=== PATIENT | male | born 1960 | race Caucasian/White ===

== ENCOUNTER 2020-03-25 07:32 | Inpatient (IN) ==
[2020-03-25 08:15] LABS: Hematocrit 50.5 % (42.0-52.0); Hemoglobin 15.3 gm/dL (13.5-18.0); Mean Cell Volume 103.9 fl (78-100); Mean Corpuscular Hemoglobin 31.5 pg (27-31); Mean Corpuscular Hgb Conc 30.3 g/dl (32-36); Mean Platelet Volume 11.8 fl (8-11.3); Neutrophil # 7.4 K/mm3 (1.3-6.0); Neutrophil % 78.8 % (42-75.0); Platelet Count 190 K/mm3 (150-450); Red Blood Count 4.86 M/mm3 (4.7-6.0); Red Cell Distribution Width 14.4 % (11.5-14.0); White Blood Count 9.4 K/mm3 (4.0-10.5)
[2020-03-25] MEDS ORDERED: FUROSEMIDE 10 MG/ML VIAL IV ONE (08:34)
[2020-03-25 08:35] LABS: Troponin I Less than 0.017 ng/mL (0.00-0.10)
[2020-03-25 08:36] LABS: ALT 52 U/L (19-67); AST 30 U/L (0-48); Alkaline Phosphatase * 109 U/L (50-170); Anion Gap 4.5 mmol/L (6.8-13.8); BNP * 978 pg/mL (5-175); BUN/Creatinine Ratio 11.9 (9.0-21.6); Bilirubin, Total 0.5 mg/dL (0.0-1.1); Blood Urea Nitrogen 10 mg/dL (6-23); Ca. Corrected For Albumin 9.6 mg/dL (8.4-10.2); Calcium * 9.1 mg/dL (7.9-10.9); Carbon Dioxide 34.6 mmol/L (24-32.6); Chloride 102 mmol/L (97-106); Glucose * 139 mg/dL (70-110); Potassium 4.1 mmol/L (3.4-4.6); Sodium 137 mmol/L (132-142); Total Protein 6.9 gm/dL (6.2-8.2)
[2020-03-25] MEDS ORDERED: ALBUTEROL SULFATE/IPRATROPIUM 3 ML NEBU IH ONE (09:10)
[2020-03-25] MEDS ORDERED: METHYLPREDNISOLONE SOD SUCC/PF 40 MG/ML VIAL IV ONE (09:11)
--- NOTE | 2020-03-25 12:05 | ERNOTE ---
Dyspnea - Date Date of Service: 03/25/20 - General Presenting Symptoms: shortness of breath Time Seen by Provider: 03/25/20 08:04 Source: patient Exam Limitations: no limitations - Immun/Allergies/Home Medications Immunizations: IMMUNIZATION HX Immunizations Up to Date Yes History of Influenza Vaccine No Hx Pneumococcal Vaccination No Allergies/Adverse Reactions: Allergies Penicillins Allergy (Unknown, Verified 03/25/20 08:03) Home Medications: HOME MEDICATIONS NK 03/25/20 [Last Taken Unknown] - History of Present Illness Narrative: Patient presents to the ED for feeling SOB. This has been a progressive problem. Legs more swollen especially over the last 2 weeks. He does not regularly see a doctor. Has not had anything like this specifically before. Not very forthcoming historically. No CP. Mild cough. SOB worse with exertion. Has not seen anyone else for this. 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 Denies: fever/chills, chest pain/discomfort Prior Treatment: Denies: recently seen Review of Systems - Review of Systems Constitutional: Absent: fever EYE: Present: no symptoms reported ENT: Absent: sore throat Respiratory: Present: See HPI Cardiology: Absent: chest pain Gastrointestinal/Abdominal: Present: other - has a known hernia, no acurte Sx with this Genitourinary: Present: no symptoms reported Neurological: Absent: weakness All Other Systems: All systems neg except as marked Medical History (Last Reviewed 03/25/20 @ 11:57 by Ibrahima Golden MD) COPD (chronic obstructive pulmonary disease) Hernia Hypertension Surgical History: Surgical History (Last Reviewed 03/25/20 @ 11:57 by Ibrahima Golden MD) History of tonsillectomy and adenoidectomy Family History: Family History (Last Reviewed 03/25/20 @ 11:57 by Ibrahima Golden MD) Brother CHF (congestive heart failure) Hypertension Mother Hypertension Brother COPD (chronic obstructive pulmonary disease) Grandmother COPD (chronic obstructive pulmonary disease) Father Medical history unknown Social History: (Last Reviewed 03/25/20 @ 11:57 by Ibrahima Golden MD) Social History: lives independently: Yes household members: family current occupational status: disabled current occupational exposures/hazards: No Tobacco: Smoking Status: Current every day smoker tobacco type: cigarettes Smoking cigarettes per day: 20 Alcohol: alcohol intake: former Substance Use: substance use type: does not use Dietary Habits: well-balanced diet: daily or most days caffeine: Yes Type: carbonated beverages Physical Exam - Physical Exam General Appearance: Present: alert, other - mild tachypnea Head Exam: Present: normal inspection, no evidence of injury Eye Exam: Normal inspection: bilateral, PERRL: bilateral Ears, Nose, Throat: Present: normal ENT inspection Neck: Present: normal inspection Respiratory: Present: other - Mild tachypnea, rales and scattered faint wheezes Cardiovascular/Chest: Present: regular rate, rhythm Gastrointestinal/Abdominal: Present: normal bowel sounds, nontender, other - No tenderness over the hernia Back Exam: Absent: CVA tenderness (R), CVA tenderness (L) Extremity Exam: Present: pedal edema Neurological Exam: Present: alert, no motor/sensory deficits Skin Exam: Present: normal color, warm/dry Progress - Results and Orders Patient's Lab Results:: I have reviewed the patient's lab results. - Vital Signs Patient's Vital Signs:: I have reviewed the patient's vital signs. Vital Signs: Vital Signs 03/25/20 07:35 03/25/20 08:01 03/25/20 08:05 Temperature 36.4 C Pulse Rate 70 70 70 Respiratory Rate 28 H 22 H 24 H Blood Pressure 148/65 H 125/57 O2 Sat by Pulse Oximetry 75 L 88 L 95 03/25/20 08:47 03/25/20 09:01 03/25/20 09:31 Temperature Pulse Rate 70 73 69 Respiratory Rate 15 22 H Blood Pressure 137/63 163/137 H 156/60 H O2 Sat by Pulse Oximetry 86 L 91 L 03/25/20 09:33 03/25/20 10:01 03/25/20 10:31 Temperature Pulse Rate 68 74 91 Respiratory Rate 19 20 24 H Blood Pressure 161/97 H 148/83 H O2 Sat by Pulse Oximetry 93 88 L 92 L - EKG EKG #1 EKG: NSR EKG read: Interp. by me EKG Comments: NSR rate 71. Non-specific, no STEMI - X-Ray X-Ray #1 X-Ray: chest Interpretation: Interp. by me X-ray Comments: I personally reviewed image as well as official radiology report - CT/Ultrasound CT/Ultrasound Narrative: I personally reviewed the official radiology report - Progress/Reassessment Chief Complaint: Dyspnea Progress Note-Subjective: 03/25/20 12:03 Patient given IV Lasix. Had good diuresis. BiPap started. He needs to be admitted, I spoke to the Dr Black who will admit the patient. Patient understands need for hospitalization. Improved after Meds here. Bipap for the hypercarbia, this is likely chronic. Departure Clinical Impression: Hypoxia, CHF (congestive heart failure), Hypercarbia - Departure Disposition: Still a patient Condition: Fair Referrals: NONE,NONE [Primary Care Provider] -
[2020-03-25] MEDS: ENOXAPARIN SODIUM 40 MG/0.4 ML SYRG SC SCH (16:26)
[2020-03-25] MEDS: ALBUTEROL SULFATE/IPRATROPIUM 3 ML NEBU IH PRN (19:05)
[2020-03-25] MEDS: METHYLPREDNISOLONE SOD SUCC/PF 125 MG/2 ML VIAL IV SCH (19:09)
[2020-03-25] MEDS: FUROSEMIDE 10 MG/ML VIAL IV SCH (21:25)
--- NOTE | 2020-03-25 22:18 | HP ---
Chief Complaint - Chief Complaint Date of Service: 03/25/20 Time of Service: 22:17 Chief Complaint: Shortness of breath, fatigue History of Present Illness: 59-year-old male with no known pertinent past medical history came into the ER today with shortness of breath and fatigue that has been ongoing for the last 2 weeks or so. Patient takes no medications and does not see the doctors regularly. Patient not very good historian with his overall health. Patient does admit to having shortness of breath with walking. Patient states that he has been out of sleep last 3 or 4 days due to shortness of breath. Patient endorses mild nonproductive cough. Patient denies fevers or chills. In the ER patient is found have a white count of 9.4 and a D-dimer of 0.93. Patient had CTA which was negative for pulmonary embolus. Patient was negative for Covid. Patient was fairly distressed in the ER and so patient was admitted under BiPAP. Initial ABG showed him to have a PCO2 of 93.5, a PO2 of 76 4, pH of 7.23, and a bicarb of 30.2. Patient also had a BNP of 978. EKG showed nonspecific ST changes but no STEMI. Patient denied chest pain. Patient received a dose IV Lasix and diuresed fairly well. Patient was placed in observation for likely new onset CHF versus COPD exacerbation, and brought over to the floor on BiPAP. When examined patient was coherent and responding to questions appropriately though he was a poor historian did not really talk but is out. Patient did endorse long history of cigarette use. Medical History (Last Reviewed 03/25/20 @ 12:39 by Deisy Harper RN) COPD (chronic obstructive pulmonary disease) Hernia Hypertension Surgical History: Surgical History (Last Reviewed 03/25/20 @ 12:39 by Deisy Harper RN) History of tonsillectomy and adenoidectomy Family History: Family History (Last Reviewed 03/25/20 @ 12:39 by Deisy Harper RN) Brother CHF (congestive heart failure) Hypertension Mother Hypertension Brother COPD (chronic obstructive pulmonary disease) Grandmother COPD (chronic obstructive pulmonary disease) Father Medical history unknown Social History: (Last Reviewed 03/25/20 @ 12:39 by Deisy Harper RN) Social History: lives independently: Yes household members: family current occupational status: disabled current occupational exposures/hazards: No Tobacco: Smoking Status: Current every day smoker tobacco type: cigarettes Smoking cigarettes per day: 20 Alcohol: alcohol intake: former Substance Use: substance use type: does not use Dietary Habits: well-balanced diet: daily or most days caffeine: Yes Type: carbonated beverages Review Of Systems (GEN) - Review of Systems Generalized/Overall Review: Present: Weakness, Fatigue. Absent: Chills, Fever EENTM: Present: No Symptoms Reported Respiratory: Present: Cough, Shortness of Breath - Thank you. Absent: Wheezing Cardiac: Present: Edema. Absent: Chest Pain Abdominal: Absent: Nausea, Vomiting Genitourinary: Present: No Symptoms Reported Musculoskeletal: Present: No Symptoms Reported Neurological: Present: No Symptoms Reported Skin: Present: No Symptoms Reported Immunizations: IMMUNIZATION HX Immunizations Up to Date Yes History of Influenza Vaccine No Hx Pneumococcal Vaccination No Allergies/Adverse Reactions: Allergies Allergy/AdvReac Type Severity Reaction Status Date / Time Penicillins Allergy Unknown Verified 03/25/20 12:39 Home Medications: HOME MEDICATIONS NK 03/25/20 [Last Taken Unknown] Exam - Exam Vital Signs: Vital Signs - Last Taken Temp 36.9 C 03/25/20 16:38 Pulse 58 L 03/25/20 21:25 Resp 27 H 03/25/20 19:39 BP 132/66 03/25/20 21:25 Pulse Ox 93 03/25/20 19:39 Constitutional: Present: Alert, Oriented x3, Somnolent ENT Exam: Present: normal ENT inspection, hearing grossly normal Eye Exam: bilateral eye: normal inspection, EOMI Neck: Present: non-tender Respiratory: Present: decreased breath sounds, rhonchi, wheezing Cardiovascular/Chest: Present: regular rate, rhythm, no murmur Abdomen: Present: soft, nontender Skin Exam: Present: normal color, warm/dry Appearance: Present: disheveled, impaired insight Eye contact: Present: cooperative, good eye contact Thoughts: Present: normal thought pattern, normal mood /affect Diagnostic Studies: Abnormal Lab Results 03/25/20 03/25/20 03/25/20 Range/Units 08:05 08:05 08:05 MCV 103.9 H (78-100) fl MCH 31.5 H (27-31) pg MCHC 30.3 L (32-36) g/dl RDW 14.4 H (11.5-14.0) % MPV 11.8 H (8-11.3) fl Neutrophils % 78.8 H (42-75.0) % Lymphocytes % 10.5 L (20-51) % Eosinophils % 3.6 H (0.0-3.0) % Neutrophils # 7.4 H (1.3-6.0) K/mm3 Lymphocytes # 0.98 L (1.5-3.5) k/mm3 D-Dimer 0.93 H (0.19-0.49) ug/mL pCO2 (35.0-48.0) mmHg pO2 (83.0-108.0) mmHg HCO3 (21.0-28.0) mmol/L Total CO2 (19.0-24.0) mmol/L Base Excess (-2.0-3.0) mmol/L ABG pH (7.35-7.45) ABG O2 Sat (Measured) (94.0-98.0) % Carbon Dioxide 34.6 H (24-32.6) mmol/L Anion Gap 4.5 L (6.8-13.8) mmol/L Random Glucose 139 H (70-110) mg/dL B-Natriuretic Peptide 978 H (5-175) pg/mL Albumin 3.0 L (3.4-5.0) gm/dl 03/25/20 03/25/20 03/25/20 Range/Units 09:25 17:10 18:02 MCV (78-100) fl MCH (27-31) pg MCHC (32-36) g/dl RDW (11.5-14.0) % MPV (8-11.3) fl Neutrophils % (42-75.0) % Lymphocytes % (20-51) % Eosinophils % (0.0-3.0) % Neutrophils # (1.3-6.0) K/mm3 Lymphocytes # (1.5-3.5) k/mm3 D-Dimer (0.19-0.49) ug/mL pCO2 93.5 H* 121.3 H* 122.0 H* (35.0-48.0) mmHg pO2 76.4 L (83.0-108.0) mmHg HCO3 38.2 H 46.8 H 47.6 H (21.0-28.0) mmol/L Total CO2 41.1 H 50.5 H 51.3 H (19.0-24.0) mmol/L Base Excess 6.2 H 12.3 H 13.1 H (-2.0-3.0) mmol/L ABG pH 7.23 L 7.20 L 7.21 L (7.35-7.45) ABG O2 Sat (Measured) 91.8 L 93.3 L (94.0-98.0) % Carbon Dioxide (24-32.6) mmol/L Anion Gap (6.8-13.8) mmol/L Random Glucose (70-110) mg/dL B-Natriuretic Peptide (5-175) pg/mL Albumin (3.4-5.0) gm/dl 03/25/20 03/25/20 Range/Units 18:45 21:00 MCV (78-100) fl MCH (27-31) pg MCHC (32-36) g/dl RDW (11.5-14.0) % MPV (8-11.3) fl Neutrophils % (42-75.0) % Lymphocytes % (20-51) % Eosinophils % (0.0-3.0) % Neutrophils # (1.3-6.0) K/mm3 Lymphocytes # (1.5-3.5) k/mm3 D-Dimer (0.19-0.49) ug/mL pCO2 102.9 H* 99.1 H* (35.0-48.0) mmHg pO2 62.8 L (83.0-108.0) mmHg HCO3 43.7 H 43.3 H (21.0-28.0) mmol/L Total CO2 46.9 H 46.3 H (19.0-24.0) mmol/L Base Excess 10.9 H 11.0 H (-2.0-3.0) mmol/L ABG pH 7.25 L 7.26 L (7.35-7.45) ABG O2 Sat (Measured) 86.8 L (94.0-98.0) % Carbon Dioxide (24-32.6) mmol/L Anion Gap (6.8-13.8) mmol/L Random Glucose (70-110) mg/dL B-Natriuretic Peptide (5-175) pg/mL Albumin (3.4-5.0) gm/dl Laboratory Results WBC 9.4 K/mm3 (4.0-10.5) 03/25/20 08:05 RBC 4.86 M/mm3 (4.7-6.0) 03/25/20 08:05 Hgb 15.3 gm/dL (13.5-18.0) 03/25/20 08:05 Hct 50.5 % (42.0-52.0) 03/25/20 08:05 MCV 103.9 fl (78-100) H 03/25/20 08:05 MCH 31.5 pg (27-31) H 03/25/20 08:05 MCHC 30.3 g/dl (32-36) L 03/25/20 08:05 RDW 14.4 % (11.5-14.0) H 03/25/20 08:05 Plt Count 190 K/mm3 (150-450) 03/25/20 08:05 MPV 11.8 fl (8-11.3) H 03/25/20 08:05 Immature Gran % (Auto) 0.30 % (0.001-0.429) 03/25/20 08:05 Immature Gran # (Auto) 0.03 K/mm3 (0.000-0.0310) 03/25/20 08:05 Neutrophils % 78.8 % (42-75.0) H 03/25/20 08:05 Lymphocytes % 10.5 % (20-51) L 03/25/20 08:05 Monocytes % 6.1 % (0.0-9) 03/25/20 08:05 Eosinophils % 3.6 % (0.0-3.0) H 03/25/20 08:05 Basophils % 0.7 % (0.0-1.0) 03/25/20 08:05 Nucleated RBC % 0.0 k/mm3 (0-1) 03/25/20 08:05 Neutrophils # 7.4 K/mm3 (1.3-6.0) H 03/25/20 08:05 Lymphocytes # 0.98 k/mm3 (1.5-3.5) L 03/25/20 08:05 Monocytes # 0.6 k/mm3 (0.0-1.0) 03/25/20 08:05 Eosinophils # 0.3 k/mm3 (0.0-0.7) 03/25/20 08:05 Absolute Basophils 0.1 k/mm3 (0.0-0.1) 03/25/20 08:05 D-Dimer 0.93 ug/mL (0.19-0.49) H 03/25/20 08:05 pCO2 99.1 mmHg (35.0-48.0) H* 03/25/20 21:00 pO2 62.8 mmHg (83.0-108.0) L 03/25/20 21:00 HCO3 43.3 mmol/L (21.0-28.0) H 03/25/20 21:00 Total CO2 46.3 mmol/L (19.0-24.0) H 03/25/20 21:00 Base Excess 11.0 mmol/L (-2.0-3.0) H 03/25/20 21:00 ABG pH 7.26 (7.35-7.45) L 03/25/20 21:00 ABG O2 Sat (Measured) 86.8 % (94.0-98.0) L 03/25/20 21:00 Sodium 137 mmol/L (132-142) 03/25/20 08:05 Plasma Sodium 138 mmol/L (130-142) 03/25/20 08:05 Potassium 4.1 mmol/L (3.4-4.6) 03/25/20 08:05 Chloride 102 mmol/L (97-106) 03/25/20 08:05 Carbon Dioxide 34.6 mmol/L (24-32.6) H 03/25/20 08:05 Anion Gap 4.5 mmol/L (6.8-13.8) L 03/25/20 08:05 BUN 10 mg/dL (6-23) 03/25/20 08:05 Creatinine 0.84 mg/dL (0.4-1.4) 03/25/20 08:05 Est GFR (Non-Af Amer) 100 mL/min (60-130) 03/25/20 08:05 BUN/Creatinine Ratio 11.9 (9.0-21.6) 03/25/20 08:05 Random Glucose 139 mg/dL (70-110) H 03/25/20 08:05 Lactic Acid, Venous 0.9 mmol/L (0.4-2.0) 03/25/20 08:05 Calcium 9.1 mg/dL (7.9-10.9) 03/25/20 08:05 Calcium Adj for Albumin 9.6 mg/dL (8.4-10.2) 03/25/20 08:05 Total Bilirubin 0.5 mg/dL (0.0-1.1) 03/25/20 08:05 AST 30 U/L (0-48) 03/25/20 08:05 ALT 52 U/L (19-67) 03/25/20 08:05 Alkaline Phosphatase 109 U/L (50-170) 03/25/20 08:05 Troponin I Less than 0.017 ng/mL (0.00-0.10) 03/25/20 08:05 B-Natriuretic Peptide 978 pg/mL (5-175) H 03/25/20 08:05 Total Protein 6.9 gm/dL (6.2-8.2) 03/25/20 08:05 Albumin 3.0 gm/dl (3.4-5.0) L 03/25/20 08:05 SARS-CoV-2 (PCR) Not detected (NotDetected) 03/25/20 08:15 Assessment/Plan - Narrative Narrative: When seen on the floor initially patient was alert and coherent. Able to answer questions though he was limited with his insight and did not really want to discuss his overall health. Patient was initially brought over on BiPAP but wanted to eat lunch and was switched over to nasal cannula. When I initially examined him he was eating lunch without complication, on nasal cannula to maintain sats properly. Initial ABG reviewed and suspected the patient has a chronic CO2 retainer from undiagnosed COPD. Patient was put back on BiPAP once he completed lunch. Nurse called roughly 3 hours later stating that he was somnolent and not responding to questions appropriately. Repeat ABG ordered which showed his pCO2 had worsened from 93.5 up to 102.9. Patient's BiPAP settings were adjusted to 25/5 and repeat ABG obtained an hour later which showed his CO2 downtrending at 99.1 and his pH which initially was 7.23 was up to 7.26. Patient was reexamined and was much more coherent and appropriate. Patient stated he started to feel better. Repeat ABG this evening, will decrease rate of CO2 being blown off as to not shut down his respiratory drive. As far as his elevated BNP, (patient likely has CHF but needs to have this confirmed with a echocardiogram) and his pitting edema, patient was started on Lasix in the ER which will be continued twice daily while here. Repeat BMP in the morning to monitor kidney function Patient was also given Solu-Medrol which will be continued though the dose was decreased to 60 mg 3 times daily. This is for his likely COPD exacerbation. Duo nebs ordered. Patient started on Lovenox 40 mg daily, Heart healthy diet ordered. Nurse to call with questions or concerns. 60 today minutes of critical time spent with patient - Assessment/Plan (1) Hypoxia Problem: Acute (2) CHF (congestive heart failure) Problem: Suspected (3) COPD (chronic obstructive pulmonary disease) Problem: Suspected (4) Hypercarbia Problem: Chronic
[2020-03-26] MEDS: METHYLPREDNISOLONE SOD SUCC/PF 125 MG/2 ML VIAL IV SCH ×3 (03:21→20:16)
[2020-03-26] MEDS: ALBUTEROL SULFATE/IPRATROPIUM 3 ML NEBU IH PRN ×2 (04:37→20:34)
[2020-03-26 06:55] LABS: Anion Gap 2.7 mmol/L (6.8-13.8); Carbon Dioxide 43.3 mmol/L (24-32.6)
[2020-03-26] MEDS: FUROSEMIDE 10 MG/ML VIAL IV SCH (08:19)
[2020-03-26] MEDS: LISINOPRIL 20 MG TABLET PO SCH (11:15)
[2020-03-26] MEDS: ENOXAPARIN SODIUM 40 MG/0.4 ML SYRG SC SCH (13:26)
--- NOTE | 2020-03-26 14:09 | PN ---
Subjective - Date and Time Seen Date: 03/26/20 Time: 13:53 Subjective Narrative: Patient much more alert and oriented this morning as compared to last night. Patient maintaining good sats on nasal cannula. Patient does not recall much of what happened last night which shows the significance of his hypercapnia related COPD. Repeat ABG today shows an increase in his CO2 again from 73 up to 81. Patient will likely have to be on BiPAP at night when he sleeps which will begin working on. Patient otherwise has been stable and his vital signs are stable. Objective - Review of Systems Generalized/Overall Review: Denies: Weakness, Chills, Fever EENTM: Reports: No Symptoms Reported Respiratory: Reports: Shortness of Breath, Wheezing. Denies: Cough Cardiac: Reports: No Symptoms Reported Abdominal: Reports: No Symptoms Reported Musculoskeletal Complaints: Reports: No Symptoms Reported Neurological: Reports: No Symptoms Reported Skin: Reports: No Symptoms Reported Endocrine: Reports: No Symptoms Reported - Vitals Vitals: Last Vital Signs Temp 37.1 C 03/26/20 10:30 Pulse 71 03/26/20 11:15 Resp 20 03/26/20 10:30 BP 126/70 03/26/20 11:15 Pulse Ox 94 03/26/20 10:30 - Abnormal Lab Findings Abnormal Lab Findings: Abnormal Lab Results 03/25/20 03/25/20 03/25/20 Range/Units 17:10 18:02 18:45 pCO2 121.3 H* 122.0 H* 102.9 H* (35.0-48.0) mmHg pO2 (83.0-108.0) mmHg HCO3 46.8 H 47.6 H 43.7 H (21.0-28.0) mmol/L Total CO2 50.5 H 51.3 H 46.9 H (19.0-24.0) mmol/L Base Excess 12.3 H 13.1 H 10.9 H (-2.0-3.0) mmol/L ABG pH 7.20 L 7.21 L 7.25 L (7.35-7.45) ABG O2 Sat (Measured) 93.3 L (94.0-98.0) % Potassium (3.4-4.6) mmol/L Carbon Dioxide (24-32.6) mmol/L Anion Gap (6.8-13.8) mmol/L Random Glucose (70-110) mg/dL 03/25/20 03/25/20 03/26/20 Range/Units 21:00 23:25 06:15 pCO2 99.1 H* 73.1 H* (35.0-48.0) mmHg pO2 62.8 L 69.8 L (83.0-108.0) mmHg HCO3 43.3 H 39.2 H (21.0-28.0) mmol/L Total CO2 46.3 H 41.4 H (19.0-24.0) mmol/L Base Excess 11.0 H 9.8 H (-2.0-3.0) mmol/L ABG pH 7.26 L (7.35-7.45) ABG O2 Sat (Measured) 86.8 L 92.5 L (94.0-98.0) % Potassium 5.0 H D (3.4-4.6) mmol/L Carbon Dioxide 43.3 H (24-32.6) mmol/L Anion Gap 2.7 L (6.8-13.8) mmol/L Random Glucose 159 H (70-110) mg/dL 03/26/20 Range/Units 13:25 pCO2 81.1 H* (35.0-48.0) mmHg pO2 60.6 L (83.0-108.0) mmHg HCO3 43.3 H (21.0-28.0) mmol/L Total CO2 45.8 H (19.0-24.0) mmol/L Base Excess 13.0 H (-2.0-3.0) mmol/L ABG pH (7.35-7.45) ABG O2 Sat (Measured) 88.6 L (94.0-98.0) % Potassium (3.4-4.6) mmol/L Carbon Dioxide (24-32.6) mmol/L Anion Gap (6.8-13.8) mmol/L Random Glucose (70-110) mg/dL - Exam Constitutional: Present: Alert, Oriented x3, Elderly, Obese ENT Exam: Present: hearing grossly normal. Absent: nasal congestion, nasal drainage Neck: Present: non-tender, supple Respiratory: Present: no respiratory distress, no accessory muscle use, other - o2 via NC currently being administered Cardiovascular/Chest: Present: regular rate, rhythm, no murmur Abdomen: Present: soft, nontender Skin Exam: Present: normal color, warm/dry Appearance: Present: disheveled, impaired insight Eye contact: Present: cooperative, good eye contact, normal speech Thoughts: Present: normal thought pattern, normal mood /affect Assessment/Plan Plan Narrative: Patient with likely acute on chronic COPD exacerbation with hypercapnia. Patient likely has had COPD for prolonged period of time untreated which explains his elevated PCO2 at its levels as well as his elevated bicarb at the start to compensate for the acidosis. Patient has been off BiPAP for the last 10 hours or so and the CO2 was already sent to climb back up. Patient will likely need BiPAP at night when he sleeps in order to maintain better oxygenation and CO2 exchange. Will restart BiPAP again this evening for goes to bed, explained the patient this is necessary but he does not understand why which will be ongoing education provided to the patient while is here. Continue Solu-Medrol. Continue duo nebs as needed. Continue oxygen via nasal cannula to maintain appropriate sat levels. Repeat ABG tomorrow morning. Patient currently on Lasix for slightly elevated BNP but I do not feel this is affecting his breathing is much as his COPD is. Patient does not appear to be significantly fluid overloaded and he diuresed well with the Lasix. Continue IV Lasix once a day. Monitor strict I's and O's. Patient is down roughly 9 kg from admission. Patient likely need outpatient work-up with echocardiogram. Patient currently on Lovenox. We will repeat BMP in the morning, kidney function unchanged from admission. Tolerating diuresis well. Patient was started on lisinopril for his elevated blood pressures at 20 mg. Blood pressure currently well controlled. Slightly hyperkalemic, will monitor this with repeat BMP in the morning. No treatment needed for this at this time unless it continues to elevate. Patient switch from observation to inpatient due to extensive altered mentation with elevated CO2 levels. Patient will likely be here for a while to get this worked out and I do not feel it safe for him to go home with understanding BiPAP and being on it. Also want him to be stabilized with this prior to discharge or the like to the patient returning to the hospital is high. 45 minutes of critical care time spent with the patient today, reviewing his records, adjusting treatment plan. - Problems/Diagnosis (1) Hypoxia Problem: Acute (2) CHF (congestive heart failure) Problem: Suspected Qualifiers: Heart failure chronicity: unspecified (3) COPD (chronic obstructive pulmonary disease) Problem: Suspected (4) Hypercarbia Problem: Chronic
[2020-03-27] MEDS: METHYLPREDNISOLONE SOD SUCC/PF 125 MG/2 ML VIAL IV SCH ×3 (05:16→19:44)
[2020-03-27] MEDS: LISINOPRIL 20 MG TABLET PO SCH (10:02)
[2020-03-27] MEDS: FUROSEMIDE 10 MG/ML VIAL IV SCH (10:02)
[2020-03-27] MEDS: ENOXAPARIN SODIUM 40 MG/0.4 ML SYRG SC SCH (13:10)
--- NOTE | 2020-03-27 22:07 | PN ---
Subjective - Date and Time Seen Date: 03/27/20 Time: 10:00 Subjective Narrative: Patient comfortable today. States he is feeling better. Tolerated Bipap last night well, slept well. Vitals are stable. ABG still with an elevated pCO2 which is likely where he lives. He does endorse some shortness of breath and mild cough but otherwise states he hasn'f felt this good in a long time. He currently is sating well on o2 via NC. Objective - Review of Systems Generalized/Overall Review: Denies: Weakness, Chills, Fever EENTM: Reports: No Symptoms Reported Respiratory: Reports: Shortness of Breath. Denies: Cough Cardiac: Denies: Chest Pain, Edema, Palpitations Abdominal: Reports: No Symptoms Reported Genitourinary Symptoms: Reports: No Symptoms Reported Musculoskeletal Complaints: Reports: No Symptoms Reported Neurological: Reports: No Symptoms Reported Skin: Reports: No Symptoms Reported - Vitals Vitals: Last Vital Signs Temp 36.9 C 03/27/20 18:29 Pulse 71 03/27/20 18:29 Resp 24 H 03/27/20 18:29 BP 132/60 03/27/20 18:29 Pulse Ox 90 L 03/27/20 18:29 - Abnormal Lab Findings Abnormal Lab Findings: Abnormal Lab Results 03/27/20 Range/Units 07:20 pCO2 80.1 H* (35.0-48.0) mmHg HCO3 40.1 H (21.0-28.0) mmol/L Total CO2 42.5 H (19.0-24.0) mmol/L Base Excess 10.0 H (-2.0-3.0) mmol/L ABG pH 7.32 L (7.35-7.45) - Exam Constitutional: Present: Alert, Oriented x3, No distress ENT Exam: Present: hearing grossly normal Neck: Present: non-tender, supple Respiratory: Present: lungs clear, decreased breath sounds - poor air flow Cardiovascular/Chest: Present: regular rate, rhythm, no murmur Abdomen: Present: Normal bowel sounds, soft, nontender Extremity: Present: lower extremity edema - improving Skin Exam: Present: normal color, warm/dry Neurologic: Present: alert, normal mood/affect, oriented x 3 Appearance: Present: appropriate appearance, appropriate insight Eye contact: Present: cooperative, good eye contact Thoughts: Present: normal thought pattern, normal mood /affect Assessment/Plan Plan Narrative: Patient here for COPD with hypercapnea. Likely a chronic issue but he did have dangerously high PCO2 just a couple of days ago. He has no funding, case management working on this as he will likely need a Bipap machine as well as COPD medications. 45 minutes of critical time spent today with the patient, case management, and developing treatment plan. Nurse to call with questions or concerns. - Problems/Diagnosis (1) Hypoxia Problem: Acute Narrative: Stable with o2 via NC. Will try walking test tomorrow to see if he maintains sats. (2) CHF (congestive heart failure) Problem: Suspected Qualifiers: Heart failure chronicity: unspecified Narrative: Diuressed well. Monitoring Strict i/os. Continue lasix (3) COPD (chronic obstructive pulmonary disease) Problem: Suspected Narrative: On steroids. Duonebs ordered. Patient has limited finances and unsure on what meds he will be able to afford proper meds once he is discharged. Applied for medicaid today with the help from case management. (4) Hypercarbia Problem: Chronic Narrative: Patient with significantlly elevated pCO2, most likely chronically elevated. Will wean of bipap today and repeat abg in the AM and see how he feels tomorrow since he likely wont be able to get a bipap machine. If his CO2 continues to rise, he will likely be here for awhile. Otherwise if he is discharged I have a feeling he will be back quickly.
[2020-03-27] MEDS: ALBUTEROL SULFATE/IPRATROPIUM 3 ML NEBU IH PRN (23:55)
[2020-03-28] MEDS: METHYLPREDNISOLONE SOD SUCC/PF 125 MG/2 ML VIAL IV SCH ×3 (03:30→21:37)
[2020-03-28] MEDS: FUROSEMIDE 10 MG/ML VIAL IV SCH (10:00)
[2020-03-28] MEDS: LISINOPRIL 20 MG TABLET PO SCH (10:01)
[2020-03-28] MEDS: ENOXAPARIN SODIUM 40 MG/0.4 ML SYRG SC SCH (15:08)
--- NOTE | 2020-03-28 21:12 | PN ---
Subjective - Date and Time Seen Date: 03/28/20 Time: 17:04 Subjective Narrative: Patient more relaxed. Seen earlier today with significant respiratory distress secondary to worsening hypercapnea seen on ABG. Able to take bipap off and speak with me now. He is still having a hard time understanding what is wrong with him though we have discussed this in detail. His abg showed his pCO2 had increased again overnight to 96 (trial to see how he would do without bipap). He was started back on bipap and repeat abg showed improved pCO2 to 87 thoughmstill significantly elevated. Currently he denies SOB, wheezing. He has been afebrile. Objective - Review of Systems Generalized/Overall Review: Denies: Weakness, Chills, Fever EENTM: Reports: No Symptoms Reported Respiratory: Reports: Shortness of Breath. Denies: Cough, Wheezing Cardiac: Reports: No Symptoms Reported Abdominal: Reports: No Symptoms Reported Genitourinary Symptoms: Reports: No Symptoms Reported Musculoskeletal Complaints: Reports: No Symptoms Reported Neurological: Reports: Other - confusion Skin: Reports: No Symptoms Reported Endocrine: Reports: No Symptoms Reported - Vitals Vitals: Last Vital Signs Temp 36.8 C 03/28/20 18:08 Pulse 61 03/28/20 18:08 Resp 16 03/28/20 18:08 BP 120/52 03/28/20 18:08 Pulse Ox 91 L 03/28/20 18:08 - Abnormal Lab Findings Abnormal Lab Findings: Abnormal Lab Results 03/28/20 03/28/20 Range/Units 06:22 15:37 pCO2 96.2 H* 87.5 H* (35.0-48.0) mmHg HCO3 45.0 H 45.1 H (21.0-28.0) mmol/L Total CO2 48.0 H 47.8 H (19.0-24.0) mmol/L Base Excess 12.8 H 14.0 H (-2.0-3.0) mmol/L ABG pH 7.29 L 7.33 L (7.35-7.45) - Exam Constitutional: Present: Alert, Oriented x3, Mild distress - respiratory distress (mild) ENT Exam: Present: hearing grossly normal Neck: Present: non-tender, supple Respiratory: Present: no accessory muscle use, respiratory distress, decreased breath sounds - poor air flow. Absent: rhonchi, wheezing Cardiovascular/Chest: Present: regular rate, rhythm, no murmur, edema - bilat, mid [place], 1+ pitting Abdomen: Present: Normal bowel sounds, soft, nontender, nondistended Skin Exam: Present: normal color, warm/dry Neurologic: Present: alert, oriented x 3 Appearance: Present: disheveled, impaired insight Eye contact: Present: cooperative, good eye contact Thoughts: Present: normal thought pattern, normal mood /affect Assessment/Plan Plan Narrative: On lovenox for DVT ppx. Heart healthy diet ordered. Nurse to call with questions or concerns. Case management working on getting BiPap and oxygen for patient. 1 hr of critical care time spent with patient, discussing case with Case management, talking with family, and working on tx plan. - Problems/Diagnosis (1) Acute and chronic respiratory failure with hypercapnia Problem: Acute Narrative: Patient continues to have issues with hypercapnea secondary due to retention. His CO2 climbs fairly quickly when he is off BiPap. We tried to see how he would do overnight without it as he does not have resources to obtain one and he did not do well. He was restarted on bipap this morning after his CO2 came back at 96. While his CO2 is this elevated, patient becomes somnolent and unable to respond appropriately. He is definitely altered. Once bipap is back on and pCO2 drops, he returns back to baseline mentation. He will not be able to be off of BiPap. Ordered for tonight, setting 20/5, rate 20, FiO2 35%. Will continue to monitor. (2) Metabolic encephalopathy Problem: Acute Narrative: see above (3) Hypoxia Problem: Acute Narrative: stable while on bipap and during the day when receiving O2 via NC. Patient will also need o2 at home. Keeping sats around 92% so not to decrease respiratory drive (4) COPD (chronic obstructive pulmonary disease) Problem: Suspected (5) CHF (congestive heart failure) Problem: Suspected Qualifiers: Heart failure chronicity: unspecified Narrative: Echo ordered today to evaluate CHF (6) Hyperkalemia Problem: Acute Narrative: repeat bmp in the am
[2020-03-29] MEDS: METHYLPREDNISOLONE SOD SUCC/PF 125 MG/2 ML VIAL IV SCH (04:48)
[2020-03-29 07:06] LABS: BUN/Creatinine Ratio 26.1 (9.0-21.6); Blood Urea Nitrogen 23 mg/dL (6-23); Calcium * 10.4 mg/dL (7.9-10.9); Carbon Dioxide 43.6 mmol/L (24-32.6); Chloride 98 mmol/L (97-106); Estimated Creat Clear 77.6; Glucose * 123 mg/dL (70-110); Potassium 5.3 mmol/L (3.4-4.6); Sodium 137 mmol/L (132-142)
[2020-03-29] MEDS: LISINOPRIL 20 MG TABLET PO SCH (10:20)
[2020-03-29] MEDS: FUROSEMIDE 10 MG/ML VIAL IV SCH (10:20)
[2020-03-29] MEDS: ALBUTEROL SULFATE/IPRATROPIUM 3 ML NEBU IH PRN (13:13)
[2020-03-29] MEDS: ENOXAPARIN SODIUM 40 MG/0.4 ML SYRG SC SCH (15:03)
--- NOTE | 2020-03-29 23:33 | PN ---
Subjective - Date and Time Seen Date: 03/29/20 Time: 16:24 Subjective Narrative: Patient resting in bed, bipap on. Blood gasses are labile at this time. Endorses SOB. Mildy distressed. Afebrile. No acute events over night, Echo returned negative for heart failure. Potassium mildy elevated. Objective - Review of Systems Generalized/Overall Review: Denies: Weakness, Chills, Fever EENTM: Reports: No Symptoms Reported Respiratory: Reports: Shortness of Breath. Denies: Stridor, Wheezing Cardiac: Denies: Chest Pain, Edema, Palpitations Abdominal: Reports: No Symptoms Reported Genitourinary Symptoms: Reports: No Symptoms Reported Musculoskeletal Complaints: Reports: No Symptoms Reported Neurological: Reports: No Symptoms Reported Skin: Reports: No Symptoms Reported Endocrine: Reports: No Symptoms Reported - Vitals Vitals: Last Vital Signs Temp 36.5 C 03/29/20 22:09 Pulse 66 03/29/20 23:04 Resp 23 H 03/29/20 23:04 BP 99/44 03/29/20 22:09 Pulse Ox 92 L 03/29/20 23:02 - Abnormal Lab Findings Abnormal Lab Findings: Abnormal Lab Results 03/29/20 03/29/20 03/29/20 Range/Units 06:15 06:30 08:55 pCO2 90.9 H* 62.2 H (35.0-48.0) mmHg pO2 69.5 L (83.0-108.0) mmHg HCO3 47.1 H 32.7 H (21.0-28.0) mmol/L Total CO2 49.9 H 34.6 H (19.0-24.0) mmol/L Base Excess 15.2 H 4.5 H (-2.0-3.0) mmol/L ABG pH 7.33 L 7.34 L (7.35-7.45) ABG O2 Sat (Measured) 92.5 L (94.0-98.0) % Potassium 5.3 H (3.4-4.6) mmol/L Carbon Dioxide 43.6 H (24-32.6) mmol/L Anion Gap Less than 1.0 L (6.8-13.8) mmol/L BUN/Creatinine Ratio 26.1 H (9.0-21.6) Random Glucose 123 H (70-110) mg/dL - Exam Constitutional: Present: Alert, Oriented x3, Mild distress - increased respiratory effort Respiratory: Present: lungs clear, respiratory distress, decreased breath sounds, expiration (prolonged). Absent: accessory muscle use Cardiovascular/Chest: Present: regular rate, rhythm, no murmur Abdomen: Present: soft, nontender Skin Exam: Present: normal color, warm/dry Neurologic: Present: alert. Absent: oriented x 3 - x2, confused on date Appearance: Present: appropriate appearance, appropriate insight Eye contact: Present: cooperative, good eye contact Thoughts: Present: normal thought pattern, other - anxious Assessment/Plan - Problems/Diagnosis (1) Acute and chronic respiratory failure with hypercapnia Problem: Acute Narrative: Recnet blood gas shows improved pco2 but worsening Po2. Decreaed rate, increased fio2, Pressure at 20/5. Patient to wear bipap at night and as needed during the day WIll try to use NC if possible. Case management looking for bipap for patient. Repeat abg in am. (2) Metabolic encephalopathy Problem: Acute Narrative: currently resolved, he does get very confused when his pco2 gets above 90 (3) Hypoxia Problem: Acute (4) COPD (chronic obstructive pulmonary disease) Problem: Suspected (5) CHF (congestive heart failure) Problem: Ruled-out Qualifiers: Heart failure chronicity: unspecified Narrative: echo negative for CHF (6) Hyperkalemia Problem: Acute Narrative: repeat bmp in AM. May need insulin/albuterol/kayexalate if potassium continues to rise. will monitor
[2020-03-30] MEDS: LISINOPRIL 20 MG TABLET PO SCH (09:10)
[2020-03-30] MEDS: FUROSEMIDE 10 MG/ML VIAL IV SCH (09:13)
[2020-03-30] MEDS: ENOXAPARIN SODIUM 40 MG/0.4 ML SYRG SC SCH (13:58)
[2020-03-30] MEDS ORDERED: METHYLPREDNISOLONE ACETATE 80 MG/ML VIAL IM ONE (17:54)
--- NOTE | 2020-03-30 18:07 | PN ---
Subjective - Date and Time Seen Date: 03/30/20 Time: 10:05 Subjective Narrative: Filippo Morales is a 59-year-old male patient of Dr. Black who presented to the hospital marked respiratory distress. He has a longstanding history of COPD and a pack-year history of about 70. Blood gases have improved slightly each day. They were not done today. There is no lab done today. His vital signs today show a pulse of 67, BP 112/42, respiratory 20 and mildly labored. O2 sat is 96% on 3 L nasal cannula. Objective - Review of Systems Generalized/Overall Review: Reports: No Symptoms Reported, Weakness EENTM: Reports: No Symptoms Reported Respiratory: Reports: Cough, Shortness of Breath, Wheezing Cardiac: Reports: No Symptoms Reported Abdominal: Reports: No Symptoms Reported Genitourinary Symptoms: Reports: No Symptoms Reported Musculoskeletal Complaints: Reports: No Symptoms Reported Neurological: Reports: No Symptoms Reported Skin: Reports: No Symptoms Reported Endocrine: Reports: No Symptoms Reported - Vitals Vitals: Last Vital Signs Temp 36.8 C 03/30/20 17:44 Pulse 60 03/30/20 17:44 Resp 20 03/30/20 17:44 BP 93/44 03/30/20 17:44 Pulse Ox 93 03/30/20 17:44 - EKG/Xray Findings XRAY: chest - CTA Interpretation: Reviewed by me - Exam Constitutional: Present: Alert, Oriented x3, Cooperative, Well developed, Well nourished, No distress ENT Exam: Present: normal ENT inspection, hearing grossly normal, pharynx normal, TMs normal Neck: Present: non-tender, full range of motion, supple, normal inspection Breasts: Present: Exam deferred, Nontender Respiratory: Present: chest non-tender, decreased breath sounds, rhonchi, wheezing, expiration (prolonged) Cardiovascular/Chest: Present: normal peripheral pulses, regular rate, rhythm, no chest tenderness, no edema, no gallop, no JVD, no murmur, no rub Abdomen: Present: Normal bowel sounds, soft, nontender, nondistended, no rebound tenderness, no hepatospenomegaly, no masses /Rectal: Present: Exam deferred Extremity: Present: normal range of motion, non-tender, normal inspection, no pedal edema Skin Exam: Present: normal color, warm/dry, no cyanosis Lymphatic: Present: no adenopathy Neurologic: Present: sexual assault counsellor II-XII nml as tested, normal cerebellar test, no motor/sensory deficits, alert, normal mood/affect Appearance: Present: appropriate appearance, appropriate insight, neat, no memory impairment Eye contact: Present: cooperative, good eye contact, normal speech Thoughts: Present: normal thought pattern, no apparent hallucination Assessment/Plan Plan Narrative: 1. Two-view chest x-ray in the morning 2. ABGs in the morning 3. CBC and CMP in the morning 4. Ambulate in halls today to tolerance to see where his oxygen saturations falls 5. No change in the other medicines. Continue RT treatments - Problems/Diagnosis (1) Smoker unmotivated to quit Problem: Acute (2) Hypoxia Problem: Acute (3) Hypercarbia Problem: Chronic (4) COPD (chronic obstructive pulmonary disease) Problem: Suspected Qualifiers: COPD type: COPD with acute exacerbation Qualified Code(s): J44.1 - Chronic obstructive pulmonary disease with (acute) exacerbation (5) Acute and chronic respiratory failure with hypercapnia Problem: Acute
[2020-03-30] MEDS ORDERED: METHYLPREDNISOLONE SOD SUCC/PF 40 MG/ML VIAL IV ONE (19:00)
[2020-03-30] MEDS ORDERED: METHYLPREDNISOLONE SOD SUCC/PF 40 MG/ML VIAL ONE (20:12)
[2020-03-31] MEDS: ALBUTEROL SULFATE/IPRATROPIUM 3 ML NEBU IH PRN ×2 (00:27→05:35)
[2020-03-31 07:06] LABS: Hematocrit 55.3 % (42.0-52.0); Hemoglobin 16.8 gm/dL (13.5-18.0); Mean Cell Volume 100.2 fl (78-100); Mean Corpuscular Hemoglobin 30.4 pg (27-31); Mean Corpuscular Hgb Conc 30.4 g/dl (32-36); Mean Platelet Volume 11.8 fl (8-11.3); Neutrophil # 6.7 K/mm3 (1.3-6.0); Neutrophil % 86.6 % (42-75.0); Platelet Count 226 K/mm3 (150-450); Red Blood Count 5.52 M/mm3 (4.7-6.0); Red Cell Distribution Width 13.7 % (11.5-14.0); White Blood Count 7.7 K/mm3 (4.0-10.5)
[2020-03-31 07:26] LABS: Albumin * 2.8 gm/dl (3.4-5.0); Anion Gap 2.2 mmol/L (6.8-13.8); BUN/Creatinine Ratio 37.4 (9.0-21.6); Bilirubin, Total 0.9 mg/dL (0.0-1.1); Ca. Corrected For Albumin 10.8 mg/dL (8.4-10.2); Calcium * 10.2 mg/dL (7.9-10.9); Carbon Dioxide 42.9 mmol/L (24-32.6); Potassium 5.1 mmol/L (3.4-4.6); Total Protein 6.1 gm/dL (6.2-8.2)
[2020-03-31] MEDS: LISINOPRIL 20 MG TABLET PO SCH (09:31)
[2020-03-31] MEDS: FUROSEMIDE 10 MG/ML VIAL IV SCH (09:31)
[2020-03-31] MEDS: ENOXAPARIN SODIUM 40 MG/0.4 ML SYRG SC SCH (14:31)
--- NOTE | 2020-03-31 18:27 | PN ---
Subjective - Date and Time Seen Date: 03/31/20 Time: 09:45 Subjective Narrative: Filippo Morales is a 59-year-old male patient of Dr. Black who presented to the hospital marked respiratory distress. He has a longstanding history of COPD and a pack-year history of about 70. Blood gases have improved slightly each day. They were not done today. There is no lab done today. His vital signs today show a pulse of 67, BP 112/42, respiratory 20 and mildly labored. O2 sat is 96% on 3 L nasal cannula This morning's lab: ABGs: PCO2 59.2, PO2 of 68.9, pH is 7.47, bicarb is 41.6, base excess is +14.3. Potassium is elevated at 5.1 but it is down from 5.3 yesterday. Glucose is 122 and the EGFR is 83. Vital signs show pulse of 73, BP 98/60, respirations are 21 and unlabored, and O2 saturation is 96% on 3 L nasal cannula this morning. Objective - Review of Systems Generalized/Overall Review: Reports: No Symptoms Reported, Malaise EENTM: Reports: No Symptoms Reported Respiratory: Reports: Cough, Shortness of Breath, Wheezing Cardiac: Reports: No Symptoms Reported Abdominal: Reports: No Symptoms Reported Genitourinary Symptoms: Reports: No Symptoms Reported Musculoskeletal Complaints: Reports: No Symptoms Reported Neurological: Reports: No Symptoms Reported Skin: Reports: No Symptoms Reported Endocrine: Reports: No Symptoms Reported - Vitals Vitals: Last Vital Signs Temp 36.4 C 03/31/20 14:46 Pulse 65 03/31/20 14:46 Resp 21 H 03/31/20 14:46 BP 94/36 03/31/20 14:46 Pulse Ox 95 03/31/20 14:46 - Abnormal Lab Findings Abnormal Lab Findings: Abnormal Lab Results 03/31/20 03/31/20 03/31/20 Range/Units 06:02 06:45 06:45 Hct 55.3 H (42.0-52.0) % MCV 100.2 H (78-100) fl MCHC 30.4 L (32-36) g/dl MPV 11.8 H (8-11.3) fl Immature Gran % (Auto) 0.50 H (0.001-0.429) % Immature Gran # (Auto) 0.04 H (0.000-0.0310) K/mm3 Neutrophils % 86.6 H (42-75.0) % Lymphocytes % 8.3 L (20-51) % Neutrophils # 6.7 H (1.3-6.0) K/mm3 Lymphocytes # 0.64 L (1.5-3.5) k/mm3 pCO2 59.2 H (35.0-48.0) mmHg pO2 68.9 L (83.0-108.0) mmHg HCO3 41.6 H (21.0-28.0) mmol/L Total CO2 43.5 H (19.0-24.0) mmol/L Base Excess 14.3 H (-2.0-3.0) mmol/L ABG pH 7.47 H (7.35-7.45) Potassium 5.1 H (3.4-4.6) mmol/L Carbon Dioxide 42.9 H (24-32.6) mmol/L Anion Gap 2.2 L (6.8-13.8) mmol/L BUN 37 H D (6-23) mg/dL BUN/Creatinine Ratio 37.4 H (9.0-21.6) Random Glucose 122 H (70-110) mg/dL Calcium Adj for Albumin 10.8 H (8.4-10.2) mg/dL Total Protein 6.1 L (6.2-8.2) gm/dL Albumin 2.8 L (3.4-5.0) gm/dl - Exam Constitutional: Present: Alert, Oriented x3, Cooperative, Well developed, Well nourished, No distress ENT Exam: Present: normal ENT inspection, hearing grossly normal, pharynx normal, TMs normal Neck: Present: non-tender, full range of motion, supple, normal inspection Breasts: Present: Exam deferred Respiratory: Present: chest non-tender, decreased breath sounds, accessory muscle use, rhonchi, stridor, wheezing, expiration (prolonged) Cardiovascular/Chest: Present: normal peripheral pulses, regular rate, rhythm, no chest tenderness, no edema, no gallop, no JVD, no murmur, no rub Abdomen: Present: Normal bowel sounds, soft, nontender /Rectal: Present: Exam deferred Extremity: Present: normal range of motion, non-tender, normal inspection, no pedal edema, no calf tenderness, normal capillary refill Skin Exam: Present: normal color, warm/dry, no cyanosis Lymphatic: Present: no adenopathy Neurologic: Present: tobacco stripper hand II-XII nml as tested, normal cerebellar test, no motor/sensory deficits, alert, normal mood/affect, oriented x 3 Appearance: Present: appropriate appearance, appropriate insight, neat, no memory impairment Eye contact: Present: cooperative, good eye contact Thoughts: Present: normal thought pattern, no apparent hallucination Assessment/Plan Plan Narrative: 1. Continue current therapy 2. Trying to get [place] scratch that trying to get [place] Medicaid to approve home oxygen BiPAP and nebulizer equipment for home use. 3. Repeat lab again tomorrow. - Problems/Diagnosis (1) Smoker unmotivated to quit Problem: Acute (2) Hypoxia Problem: Acute (3) Hypercarbia Problem: Chronic (4) COPD (chronic obstructive pulmonary disease) Problem: Suspected Qualifiers: COPD type: COPD with acute exacerbation Qualified Code(s): J44.1 - Chronic obstructive pulmonary disease with (acute) exacerbation (5) Acute and chronic respiratory failure with hypercapnia Problem: Acute
[2020-04-01 07:09] LABS: Hematocrit 55.8 % (42.0-52.0); Hemoglobin 16.9 gm/dL (13.5-18.0); Mean Cell Volume 101.6 fl (78-100); Mean Corpuscular Hemoglobin 30.8 pg (27-31); Mean Corpuscular Hgb Conc 30.3 g/dl (32-36); Neutrophil # 5.3 K/mm3 (1.3-6.0); Neutrophil % 63.6 % (42-75.0); Platelet Count 200 K/mm3 (150-450); Red Blood Count 5.49 M/mm3 (4.7-6.0); Red Cell Distribution Width 13.5 % (11.5-14.0); White Blood Count 8.3 K/mm3 (4.0-10.5)
[2020-04-01 07:56] LABS: Albumin * 3.1 gm/dl (3.4-5.0); Anion Gap 2.9 mmol/L (6.8-13.8); BUN/Creatinine Ratio 27.7 (9.0-21.6); Ca. Corrected For Albumin 10.6 mg/dL (8.4-10.2); Calcium * 10.2 mg/dL (7.9-10.9); Carbon Dioxide 41.1 mmol/L (24-32.6)
[2020-04-01] MEDS: FUROSEMIDE 10 MG/ML VIAL IV SCH (09:20)
[2020-04-01] MEDS: LISINOPRIL 20 MG TABLET PO SCH (09:20)
[2020-04-01] MEDS: ENOXAPARIN SODIUM 40 MG/0.4 ML SYRG SC SCH (14:52)
--- NOTE | 2020-04-01 18:57 | PN ---
Subjective - Date and Time Seen Date: 04/01/20 Time: 18:52 Subjective Narrative: patient seen earlier this morning but was sleeping so did not arouse. When examined patient just now, patient resting comfortably in bed. Has no concerns this time. No acute events overnight. Patient refused to wear BiPAP last night, PCO2 up to 80.8 this morning. Explained patient that he had to work tonight, repeat ABG in the morning. Still waiting on oxygen and BiPAP help for home placement. Otherwise patient feels well and has no concerns. Objective - Review of Systems Generalized/Overall Review: Denies: Weakness, Chills, Fever EENTM: Reports: No Symptoms Reported Respiratory: Reports: Shortness of Breath. Denies: Cough Cardiac: Reports: No Symptoms Reported Abdominal: Reports: No Symptoms Reported Genitourinary Symptoms: Reports: No Symptoms Reported Musculoskeletal Complaints: Reports: No Symptoms Reported Neurological: Reports: No Symptoms Reported Skin: Reports: No Symptoms Reported - Vitals Vitals: Last Vital Signs Temp 36.9 C 04/01/20 13:00 Pulse 62 04/01/20 13:00 Resp 18 04/01/20 13:00 BP 101/68 04/01/20 13:00 Pulse Ox 92 L 04/01/20 13:00 - Abnormal Lab Findings Abnormal Lab Findings: Abnormal Lab Results 04/01/20 04/01/20 04/01/20 Range/Units 06:20 06:20 07:19 Hct 55.8 H (42.0-52.0) % MCV 101.6 H (78-100) fl MCHC 30.3 L (32-36) g/dl MPV 12.0 H (8-11.3) fl Immature Gran % (Auto) 1.20 H (0.001-0.429) % Immature Gran # (Auto) 0.10 H (0.000-0.0310) K/mm3 Monocytes % 10.5 H (0.0-9) % Eosinophils % 4.3 H (0.0-3.0) % pCO2 80.8 H* (35.0-48.0) mmHg pO2 123.1 H (83.0-108.0) mmHg HCO3 37.4 H (21.0-28.0) mmol/L Total CO2 39.9 H (19.0-24.0) mmol/L Base Excess 6.7 H (-2.0-3.0) mmol/L ABG pH 7.28 L (7.35-7.45) Potassium 5.0 H (3.4-4.6) mmol/L Carbon Dioxide 41.1 H (24-32.6) mmol/L Anion Gap 2.9 L (6.8-13.8) mmol/L BUN 26 H (6-23) mg/dL BUN/Creatinine Ratio 27.7 H (9.0-21.6) Calcium Adj for Albumin 10.6 H (8.4-10.2) mg/dL Total Protein 6.0 L (6.2-8.2) gm/dL Albumin 3.1 L (3.4-5.0) gm/dl - Exam Constitutional: Present: Alert, Oriented x3, Cooperative, Elderly, Looks Older than stated age ENT Exam: Present: hearing grossly normal. Absent: nasal congestion, nasal drainage Neck: Present: non-tender, supple Respiratory: Present: lungs clear, decreased breath sounds Cardiovascular/Chest: Present: regular rate, rhythm, no murmur Abdomen: Present: hernia - umbilicla hernia, nonTTP Extremity: Present: lower extremity edema - much improved, 1+ pitting [place] Skin Exam: Present: normal color, warm/dry Appearance: Present: appropriate appearance, impaired insight Eye contact: Present: cooperative, good eye contact Thoughts: Present: normal thought pattern, normal mood /affect Assessment/Plan Plan Narrative: Continue current treatment plan until we are able to find assistance with oxygen and BiPAP for home. Nurses to call questions or concerns. - Problems/Diagnosis (1) Acute and chronic respiratory failure with hypercapnia Problem: Acute Narrative: Patient currently stable with oxygen via nasal cannula. Other vital signs stable and patient's been afebrile. Patient pCO2 elevated this morning due to noncompliance with BiPAP. Patient understands that he needs to wear it this evening, repeat ABG in the morning. (2) Metabolic encephalopathy Problem: Resolved Narrative: Stable, no longer confused. Alert and oriented (3) Hypoxia Problem: Resolved Narrative: Resolved with oxygen via nasal cannula (4) COPD (chronic obstructive pulmonary disease) Problem: Suspected Qualifiers: COPD type: COPD with acute exacerbation Qualified Code(s): J44.1 - Chronic obstructive pulmonary disease with (acute) exacerbation (5) CHF (congestive heart failure) Problem: Ruled-out Qualifiers: Heart failure chronicity: unspecified Narrative: Echo came back negative for congestive heart failure. Lasix stopped. Swelling much improved in his lower extremities (6) Hyperkalemia Problem: Acute Narrative: Downtrending, repeat BMP in the morning
[2020-04-02] MEDS: LISINOPRIL 20 MG TABLET PO SCH (08:26)
[2020-04-02] MEDS: ENOXAPARIN SODIUM 40 MG/0.4 ML SYRG SC SCH (14:34)
--- NOTE | 2020-04-02 19:04 | PN ---
Subjective - Date and Time Seen Date: 04/02/20 Time: 19:04 Subjective Narrative: He feels well today. ABGs are much improved. He denies any concerns at this time. He denies any acute events overnight. His vitals are stable, he has been afebrile. Objective - Review of Systems Generalized/Overall Review: Denies: Weakness, Chills, Fever EENTM: Reports: No Symptoms Reported Respiratory: Reports: Shortness of Breath. Denies: Cough Cardiac: Denies: Chest Pain, Edema Abdominal: Reports: No Symptoms Reported Genitourinary Symptoms: Reports: No Symptoms Reported Musculoskeletal Complaints: Reports: No Symptoms Reported Neurological: Reports: No Symptoms Reported - Vitals Vitals: Last Vital Signs Temp 36.7 C 04/02/20 18:47 Pulse 66 04/02/20 18:47 Resp 20 04/02/20 18:47 BP 120/55 04/02/20 18:47 Pulse Ox 96 04/02/20 18:47 - Abnormal Lab Findings Abnormal Lab Findings: Abnormal Lab Results 04/02/20 Range/Units 06:22 pCO2 66.0 H (35.0-48.0) mmHg HCO3 39.0 H (21.0-28.0) mmol/L Total CO2 41.0 H (19.0-24.0) mmol/L Base Excess 10.4 H (-2.0-3.0) mmol/L - Exam Constitutional: Present: Alert, Oriented x3, Looks Older than stated age Respiratory: Present: lungs clear, no respiratory distress, decreased breath sounds - in bases Cardiovascular/Chest: Present: regular rate, rhythm, no murmur Abdomen: Present: soft, nontender Skin Exam: Present: normal color, warm/dry Appearance: Present: appropriate appearance, appropriate insight Eye contact: Present: cooperative Thoughts: Present: normal thought pattern, normal mood /affect Assessment/Plan Plan Narrative: He feels much better today. ABGs improving. He was just approved for [place] medicaid. Trying to get help with o2 and BiPap machine until the first of Apr 16 when his medicaid kicks in. Repeat abg in the am. Wear bipap at night. Nurse to call with questions or concerns. - Problems/Diagnosis (1) Acute and chronic respiratory failure with hypercapnia Problem: Acute (2) Metabolic encephalopathy Problem: Resolved (3) Hypoxia Problem: Resolved (4) COPD (chronic obstructive pulmonary disease) Problem: Suspected Qualifiers: COPD type: COPD with acute exacerbation Qualified Code(s): J44.1 - Chronic obstructive pulmonary disease with (acute) exacerbation (5) CHF (congestive heart failure) Problem: Ruled-out Qualifiers: Heart failure chronicity: unspecified (6) Hyperkalemia Problem: Acute
[2020-04-03] MEDS: LISINOPRIL 20 MG TABLET PO SCH (08:35)
[2020-04-03] MEDS: ENOXAPARIN SODIUM 40 MG/0.4 ML SYRG SC SCH (14:36)
--- NOTE | 2020-04-03 17:32 | PN ---
Subjective - Date and Time Seen Date: 04/03/20 Time: 17:32 Subjective Narrative: Filippo is a much better with the settings on his BiPAP. Blood gases are much improved. Patient is much more stable and his cognition is much better when he is on BiPAP at night. He had no acute events overnight. His vital signs are stable. He is felt much better way to get out here. Objective - Review of Systems Generalized/Overall Review: Denies: Weakness, Chills, Fever EENTM: Reports: No Symptoms Reported Respiratory: Reports: Shortness of Breath - With movement. Denies: Cough Cardiac: Denies: Chest Pain, Edema, Palpitations Abdominal: Reports: No Symptoms Reported Genitourinary Symptoms: Reports: No Symptoms Reported Musculoskeletal Complaints: Reports: No Symptoms Reported Neurological: Reports: No Symptoms Reported Skin: Reports: No Symptoms Reported - Vitals Vitals: Last Vital Signs Temp 36.8 C 04/03/20 14:35 Pulse 59 L 04/03/20 15:00 Resp 18 04/03/20 14:35 BP 101/52 04/03/20 14:35 Pulse Ox 96 04/03/20 14:35 - Abnormal Lab Findings Abnormal Lab Findings: Abnormal Lab Results 04/03/20 Range/Units 06:22 pCO2 64.1 H (35.0-48.0) mmHg pO2 71.9 L (83.0-108.0) mmHg HCO3 35.8 H (21.0-28.0) mmol/L Total CO2 37.8 H (19.0-24.0) mmol/L Base Excess 7.4 H (-2.0-3.0) mmol/L ABG O2 Sat (Measured) 93.5 L (94.0-98.0) % - Exam Constitutional: Present: Alert, Oriented x3, Cooperative, Looks Older than stated age ENT Exam: Present: hearing grossly normal Neck: Present: non-tender, supple Respiratory: Present: lungs clear, decreased breath sounds. Absent: crackles, rhonchi, wheezing Cardiovascular/Chest: Present: regular rate, rhythm, no murmur Abdomen: Present: hernia - Large umbilical hernia, chronic Skin Exam: Present: normal color, warm/dry Eye contact: Present: cooperative, good eye contact Thoughts: Present: normal thought pattern, normal mood /affect Assessment/Plan Plan Narrative: Overall patient is stabilized with his BiPAP and oxygen. Patient does need BiP AP though to be worn at night and likely will need oxygen during the day as he does desat when he ambulates without it. Patient otherwise is stable, afebrile, and his vitals are much improved. Patient will receive his BiPAP and oxygen tomorrow afternoon and likely be discharged home Wednesday morning (2 days from now) Holding his lisinopril as his blood pressure is much improved. He likely will n eed to be discharged home on it. Continue current treatment plan otherwise. Nurse to call questions or concerns. - Problems/Diagnosis (1) Acute and chronic respiratory failure with hypercapnia Problem: Acute (2) Metabolic encephalopathy Problem: Resolved (3) Hypoxia Problem: Resolved (4) COPD (chronic obstructive pulmonary disease) Problem: Suspected Qualifiers: COPD type: COPD with acute exacerbation Qualified Code(s): J44.1 - Chronic obstructive pulmonary disease with (acute) exacerbation (5) CHF (congestive heart failure) Problem: Ruled-out Qualifiers: Heart failure chronicity: unspecified (6) Hyperkalemia Problem: Acute
--- NOTE | 2020-04-04 08:44 | ECHO ---
This report is available in the EMR
[2020-04-04] MEDS: LISINOPRIL 20 MG TABLET PO SCH (08:46)
[2020-04-04] MEDS: ENOXAPARIN SODIUM 40 MG/0.4 ML SYRG SC SCH (15:45)
[2020-04-04] MEDS ORDERED: TOBRAMYCIN SULFATE/DEXAMETH 25 DROP BTL EACHEYE SCH (16:30)
[2020-04-04] MEDS: TOBRAMYCIN EACHEYE SCH ×2 (17:33→21:30)
--- NOTE | 2020-04-04 23:23 | PN ---
Subjective - Date and Time Seen Date: 04/04/20 Time: 23:17 Subjective Narrative: Patient feels great today. No concerns. Breathing easier today then he has since arriving. His vitals are stable and his abgs have also stabilized Objective - Review of Systems Generalized/Overall Review: Denies: Weakness, Chills, Fever Respiratory: Reports: Cough, Shortness of Breath Cardiac: Denies: Chest Pain, Edema Abdominal: Denies: Nausea, Vomiting Genitourinary Symptoms: Reports: No Symptoms Reported Musculoskeletal Complaints: Reports: No Symptoms Reported Neurological: Reports: No Symptoms Reported Skin: Reports: No Symptoms Reported Endocrine: Reports: No Symptoms Reported - Vitals Vitals: Last Vital Signs Temp 36.6 C 04/04/20 22:59 Pulse 57 L 04/04/20 23:08 Resp 20 04/04/20 23:08 BP 131/79 04/04/20 22:59 Pulse Ox 92 L 04/04/20 23:08 - Exam Constitutional: Present: Alert, Oriented x3, Cooperative, Looks Older than stated age Respiratory: Present: lungs clear, decreased breath sounds Cardiovascular/Chest: Present: regular rate, rhythm, no murmur Abdomen: Present: soft, nontender, hernia - hiatal Skin Exam: Present: normal color, warm/dry Appearance: Present: no memory impairment, impaired insight Eye contact: Present: cooperative, good eye contact Thoughts: Present: normal thought pattern, normal mood /affect Assessment/Plan - Problems/Diagnosis (1) Acute and chronic respiratory failure with hypercapnia Problem: Acute Narrative: Stable. ABGs much improved. BiPap and Oxygen has been obtained for him. PLan for discharge tomorrow. (2) Metabolic encephalopathy Problem: Resolved (3) Hypoxia Problem: Resolved (4) COPD (chronic obstructive pulmonary disease) Problem: Chronic Qualifiers: COPD type: COPD with acute exacerbation Qualified Code(s): J44.1 - Chronic obstructive pulmonary disease with (acute) exacerbation (5) CHF (congestive heart failure) Problem: Ruled-out Qualifiers: Heart failure chronicity: unspecified (6) Hyperkalemia Problem: Acute
[2020-04-05] MEDS: TOBRAMYCIN EACHEYE SCH ×4 (01:51→13:00)
[2020-04-05] MEDS: LISINOPRIL 20 MG TABLET PO SCH (09:27)
--- NOTE | 2020-04-05 12:50 | DS ---
(1) Acute and chronic respiratory failure with hypercapnia Problem: Resolved (2) COPD (chronic obstructive pulmonary disease) Problem: Resolved Qualifiers: COPD type: COPD with acute exacerbation Qualified Code(s): J44.1 - Chronic obstructive pulmonary disease with (acute) exacerbation (3) Hyperkalemia Problem: Acute (4) Metabolic encephalopathy Problem: Resolved (5) CHF (congestive heart failure) Problem: Ruled-out Qualifiers: Heart failure chronicity: unspecified Date of Discharge:: 04/05/20 Hospital Course: Filippo is a 59 yo male who was admitted for acute respiratory failure with hypercapnea seconary to COPD exacerbation. He was treated with bipap, oxygen, duoneb, and IV steroids. With this treatment he improved to what appears to be his new baseline. He continues to need oxygen and bipap and these will be set up for him at home. He will use Bipap 20/5 with 4lpm of oxygen bleed through. He will be sent home with nebulizer supplies and duoneb to use prn. He was provided a bipap device for home use as it is apparent this will need to be continued or he will retain CO2. He is feeling much improved and is ready for home discharge today. He appears to have conjunctivitis and will be sent in a rx for Tobramycin. Procedures Performed: none Results and Findings: Lab Pending Results 03/25/20 08:05: WBC 9.4, RBC 4.86, Hgb 15.3, Hct 50.5, MCV 103.9 H, MCH 31.5 H, MCHC 30.3 L, RDW 14.4 H, Plt Count 190, MPV 11.8 H, Immature Gran % (Auto) 0.30, Immature Gran # (Auto) 0.03, Neutrophils % 78.8 H, Lymphocytes % 10.5 L, Monocytes % 6.1, Eosinophils % 3.6 H, Basophils % 0.7, Nucleated RBC % 0.0, Neutrophils # 7.4 H, Lymphocytes # 0.98 L, Monocytes # 0.6, Eosinophils # 0.3, Absolute Basophils 0.1 03/25/20 08:05: Sodium 137, Plasma Sodium 138, Potassium 4.1, Chloride 102, Carbon Dioxide 34.6 H, Anion Gap 4.5 L, BUN 10, Creatinine 0.84, Est GFR (Non-Af Amer) 100, BUN/Creatinine Ratio 11.9, Random Glucose 139 H, Calcium 9.1, Calcium Adj for Albumin 9.6, Total Bilirubin 0.5, AST 30, ALT 52, Alkaline Phosphatase 109, Troponin I Less than 0.017, B-Natriuretic Peptide 978 H, Total Protein 6.9, Albumin 3.0 L 03/25/20 08:05: Lactic Acid, Venous 0.9 03/25/20 08:05: D-Dimer 0.93 H 03/25/20 08:15: SARS-CoV-2 (PCR) Not detected 03/25/20 09:25: pCO2 93.5 H*, pO2 76.4 L, HCO3 38.2 H, Total CO2 41.1 H, Base Excess 6.2 H, ABG pH 7.23 L, ABG O2 Sat (Measured) 91.8 L 03/25/20 17:10: pCO2 121.3 H*, pO2 86.0, HCO3 46.8 H, Total CO2 50.5 H, Base Excess 12.3 H, ABG pH 7.20 L, ABG O2 Sat (Measured) 93.3 L 03/25/20 18:02: pCO2 122.0 H*, pO2 108.0, HCO3 47.6 H, Total CO2 51.3 H, Base Excess 13.1 H, ABG pH 7.21 L, ABG O2 Sat (Measured) 96.3 03/25/20 18:45: pCO2 102.9 H*, pO2 88.4, HCO3 43.7 H, Total CO2 46.9 H, Base Excess 10.9 H, ABG pH 7.25 L, ABG O2 Sat (Measured) 94.6 03/25/20 21:00: pCO2 99.1 H*, pO2 62.8 L, HCO3 43.3 H, Total CO2 46.3 H, Base Excess 11.0 H, ABG pH 7.26 L, ABG O2 Sat (Measured) 86.8 L 03/25/20 23:25: pCO2 73.1 H*, pO2 69.8 L, HCO3 39.2 H, Total CO2 41.4 H, Base Excess 9.8 H, ABG pH 7.35, ABG O2 Sat (Measured) 92.5 L 03/26/20 06:15: Sodium 138, Plasma Sodium 139, Potassium 5.0 H D, Chloride 97, Carbon Dioxide 43.3 H, Anion Gap 2.7 L, BUN 10, Creatinine 0.91, Est GFR (Non-Af Amer) 91, BUN/Creatinine Ratio 11.0, Random Glucose 159 H, Calcium 10.0 03/26/20 13:25: pCO2 81.1 H*, pO2 60.6 L, HCO3 43.3 H, Total CO2 45.8 H, Base Excess 13.0 H, ABG pH 7.35, ABG O2 Sat (Measured) 88.6 L 03/27/20 07:20: pCO2 80.1 H*, pO2 84.6, HCO3 40.1 H, Total CO2 42.5 H, Base Excess 10.0 H, ABG pH 7.32 L, ABG O2 Sat (Measured) 95.1 03/28/20 06:22: pCO2 96.2 H*, pO2 86.7, HCO3 45.0 H, Total CO2 48.0 H, Base Excess 12.8 H, ABG pH 7.29 L, ABG O2 Sat (Measured) 94.8 03/28/20 15:37: pCO2 87.5 H*, pO2 98.7, HCO3 45.1 H, Total CO2 47.8 H, Base Excess 14.0 H, ABG pH 7.33 L, ABG O2 Sat (Measured) 96.7 03/29/20 06:15: Sodium 137, Plasma Sodium 137, Potassium 5.3 H, Chloride 98, Carbon Dioxide 43.6 H, Anion Gap Less than 1.0 L, BUN 23 D, Creatinine 0.88, Est GFR (Non-Af Amer) 95, BUN/Creatinine Ratio 26.1 H, Random Glucose 123 H, Calcium 10.4 03/29/20 06:30: pCO2 90.9 H*, pO2 104.3, HCO3 47.1 H, Total CO2 49.9 H, Base Excess 15.2 H, ABG pH 7.33 L, ABG O2 Sat (Measured) 97.1 03/29/20 08:55: pCO2 62.2 H, pO2 69.5 L, HCO3 32.7 H, Total CO2 34.6 H, Base Excess 4.5 H, ABG pH 7.34 L, ABG O2 Sat (Measured) 92.5 L 03/31/20 06:02: pCO2 59.2 H, pO2 68.9 L, HCO3 41.6 H, Total CO2 43.5 H, Base Excess 14.3 H, ABG pH 7.47 H, ABG O2 Sat (Measured) 94.3 03/31/20 06:45: WBC 7.7, RBC 5.52, Hgb 16.8, Hct 55.3 H, MCV 100.2 H, MCH 30.4, MCHC 30.4 L, RDW 13.7, Plt Count 226, MPV 11.8 H, Immature Gran % (Auto) 0.50 H, Immature Gran # (Auto) 0.04 H, Neutrophils % 86.6 H, Lymphocytes % 8.3 L, Monocytes % 4.5, Eosinophils % 0.0, Basophils % 0.1, Nucleated RBC % 0.0, Neutrophils # 6.7 H, Lymphocytes # 0.64 L, Monocytes # 0.4, Eosinophils # 0.0, Absolute Basophils 0.0 03/31/20 06:45: Sodium 137, Plasma Sodium 137, Potassium 5.1 H, Chloride 97, Carbon Dioxide 42.9 H, Anion Gap 2.2 L, BUN 37 H D, Creatinine 0.99, Est GFR (Non-Af Amer) 83, BUN/Creatinine Ratio 37.4 H, Random Glucose 122 H, Calcium 10.2, Calcium Adj for Albumin 10.8 H, Total Bilirubin 0.9, AST 12, ALT 23, Alkaline Phosphatase 59, Total Protein 6.1 L, Albumin 2.8 L 03/31/20 06:45: D-Dimer 0.21 D 04/01/20 06:20: WBC 8.3, RBC 5.49, Hgb 16.9, Hct 55.8 H, MCV 101.6 H, MCH 30.8, MCHC 30.3 L, RDW 13.5, Plt Count 200, MPV 12.0 H, Immature Gran % (Auto) 1.20 H, Immature Gran # (Auto) 0.10 H, Neutrophils % 63.6, Lymphocytes % 20.2, Monocytes % 10.5 H, Eosinophils % 4.3 H, Basophils % 0.2, Nucleated RBC % 0.0, Neutrophils # 5.3, Lymphocytes # 1.68, Monocytes # 0.9, Eosinophils # 0.4, Absolute Basophils 0.0 04/01/20 06:20: Sodium 140, Plasma Sodium 140, Potassium 5.0 H, Chloride 101, Carbon Dioxide 41.1 H, Anion Gap 2.9 L, BUN 26 H, Creatinine 0.94, Est GFR (Non- Af Amer) 88, BUN/Creatinine Ratio 27.7 H, Random Glucose 84 D, Calcium 10.2, Calcium Adj for Albumin 10.6 H, Total Bilirubin 1.0, AST 17, ALT 37, Alkaline Phosphatase 62, Total Protein 6.0 L, Albumin 3.1 L 04/01/20 07:19: pCO2 80.8 H*, pO2 123.1 H, HCO3 37.4 H, Total CO2 39.9 H, Base Excess 6.7 H, ABG pH 7.28 L, ABG O2 Sat (Measured) 97.9 04/02/20 06:22: pCO2 66.0 H, pO2 104.2, HCO3 39.0 H, Total CO2 41.0 H, Base Excess 10.4 H, ABG pH 7.39, ABG O2 Sat (Measured) 97.5 04/03/20 06:22: pCO2 64.1 H, pO2 71.9 L, HCO3 35.8 H, Total CO2 37.8 H, Base Excess 7.4 H, ABG pH 7.37, ABG O2 Sat (Measured) 93.5 L Discharge Location: Home Disposition: Home self-care Condition: Fair Discharge Activity: Activity as tolerated Discharge Diet: General/regular food Referrals: NONE,NONE [Primary Care Provider] - (Kimberley Conti in 1 week) Problem Oriented Discharge Instructions to Patient/Family: Chronic Obstructive Pulmonary Disease Exacerbation, [id number] Additional Patient Instructions (free text): New PCP will be Kimberley Conti in [facility] on WednesdayApril 19 on 9:30am, her office is next to [facility]. Patient will need a sleep study once his insurance becomes active. Please fax discharge information to [phone]. To Apply for Disability: Social Security Office in [address] phone number: Hours of operation Wednesday 9:00 AM - 4:00 PM Wednesday 9:00 AM - 4:00 PM Wednesday 9:00 AM - 12:00 PM 9:00 AM - 4:00 PM Wednesday 9:00 AM - 4:00 PM Prescriptions (Any new or edited meds): Albuterol Sulfate/Ipratropium [Duoneb 2.5-0.5MG/3ML Soln] 3 ml IH Q6H PRN #30 nebu PRN Reason: Shortness Of Breath Transmission Status: Pending to [id number] Tobramycin [Tobramycin Ophthalmic Solution] 2 drp EACHEYE Q4H #1 btl Transmission Status: Pending to [id number] Complete Home Medications List: Complete Home Medication List: Albuterol Sulfate/Ipratropium [Duoneb 2.5-0.5MG/3ML Soln] 3 ml IH Q6H PRN #30 nebu 04/05/20 Tobramycin [Tobramycin Ophthalmic Solution] 2 drp EACHEYE Q4H #1 btl 04/05/20 Forms: Patient Portal Registration
[2020-04-05 13:08] VITALS: BP 113/38
== END 2020-04-05 13:50 | disposition home or self-care (01) | DRG 190 ==
LOC: MS 07:32 → ER 07:32 → MS 14:06
PROVIDERS: ADMIT Family Medicine; ATTEND Family Medicine
DX: G93.41 Metabolic encephalopathy; J96.22 Acute and chronic respiratory failure with hypercapnia; J44.1 Chronic obstructive pulmonary disease with (acute) exacerbation; E87.5 Hyperkalemia; I10 Essential (primary) hypertension; Z72.0 Tobacco use